=== PATIENT | male | born 2000 | race Caucasian/White ===

== ENCOUNTER 2023-09-18 01:16 | Day surgery (SDC) | payer BC, SELFPAY ==
[2023-09-05 12:32] VITALS: BMI 33.7
--- NOTE | 2023-09-18 10:27 | P.PNAN_ITS ---
Anes - Initial Pre Proc Eval Procedure: Operation Date: 09/18/23 13:00 Proposed Procedures p Esophagogastroduodenoscopy - Serge Mitchell MD Date/Time: 09/18/23 10:27 Surgeon: Serge Mitchlel MD Pre Op Diagnosis: epigastric pain Patient Data Age: 23 Gender: M Height: 1.68 m Weight: 95 kg Allergies Allergy/AdvReac Type Severity Reaction Status Date / Time No Known Allergies Allergy Verified 09/18/23 11:42 Home Medications Medication Instructions Recorded Confirmed Type No Home Medications 09/18/23 09/18/23 History Patient hx anesthesia problems: none Family hx anesthesia problems: none Results Review: All pre-operative results and documents have been reviewed as part of the pre- operative evaluation. [facility] Past Medical History Medical History (Updated 09/02/23 @ 14:40 by FOX Fuller) Abdominal pressure Constipation Epididymitis Epigastric pain Testicular pain Surgical History Surgical History No history of previous surgery Family History Family History Mother Hypertension Social History Social History Smoking status: Never smoker Alcohol intake: current Drinks per week: 1 Substance use: never Lack of Transportation: No Lack of Food: Never True Current Housing: I Have Housing Concerned About Future Housing: No Difficulty Paying Gas/Electric Bills: No Difficulty Paying for Meds: No Currently Unemployed: No Education: High School Diploma/GED Living arrangements: with family Spiritual care concerns: No Anes - Eval Final PreProcedure Day of Procedure 09/18/23 10:27 Patient weight: obese Heart: regular rate and rhythm Lungs: clear to auscultation Airway: Mallampati scale class II Neurological: alert and oriented Last oral intake: >/= 8 hours ASA classification: II Emergent: no Anesthetic plan: proceed Anesthesia type and monitoring: general GIVS and standard monitoring Results Review: All pre-operative results and documents have been reviewed as part of the pre- operative evaluation. Informed Consent: The patient's anesthetic plan and its attendant risks and benefits were discussed with the patient/family/POA. Questions were solicited and answers provided to the satisfaction of the patient/family/POA.
[2023-09-18 11:43] VITALS: BP 138/89; PULSE 73; RESP 18; TEMP 36.1; O2SAT 100
[2023-09-18] MEDS: LACTATED RINGERS 1,000 ML 150 ML IV CONT (11:50)
--- NOTE | 2023-09-18 12:11 | WPDHPUPDATE1 ---
History and Physical Update Update Date/Time: 09/18/23 12:11 History and Physical has been reviewed, including an updated exam of the patient. There are NO changes in the patient's condition. Risks, benefits, and alternatives have been discussed and questions answered. Patient agrees to proceed with procedure.
[2023-09-18] MEDS: BENZOCAINE (*SP) 60 ML SPRAY CAN (HURRICAINE) 1 SPRAY MUCOUS MEM (12:21)
[2023-09-18 12:29] VITALS: BP 91/64; PULSE 69; RESP 18; O2SAT 97
[2023-09-18 12:39] VITALS: BP 114/66; PULSE 71; RESP 18; O2SAT 98
[2023-09-18 12:49] VITALS: BP 113/75; PULSE 70; RESP 18; O2SAT 100
== END 2023-09-18 13:23 | disposition home or self-care (01) ==
PROVIDERS: PCP Nurse Practitioner Family; Referring Provider Nurse Practitioner Family; Visit Provider Internal Medicine Gastroenterology
PROC: 0DJ08ZZ Inspection of Upper Intestinal Tract, Via Natural or Artificial Opening Endoscopic (ICD-10-PCS; CPT 43235; principal; 2023-09-18 13:00)
DX: K21.00 Gastro-esophageal reflux disease with esophagitis, without bleeding (principal); K29.50 Unspecified chronic gastritis without bleeding; E66.9 Obesity, unspecified; Z68.33 Body mass index [BMI] 33.0-33.9, adult
CPT/HCPCS: 43239; 88305; 88307; J2704; J7120